=== PATIENT | female | born 1970 | race Asian ===

== ENCOUNTER → 2021-03-04 | Outpatient (CLI) | payer OTHER | LOC: MHCPAIN 11:01 | DX: M47.812 Spondylosis without myelopathy or radiculopathy, cervical region (principal); M54.2 Cervicalgia; M25.511 Pain in right shoulder | CPT/HCPCS: G0463 ==

== ENCOUNTER → 2021-05-08 | Outpatient (CLI) | payer OTHER | LOC: MHCPAIN 10:35 | DX: M47.812 Spondylosis without myelopathy or radiculopathy, cervical region (principal); M54.2 Cervicalgia; M54.12 Radiculopathy, cervical region | CPT/HCPCS: G0463; J1100; Q9967 ==

== ENCOUNTER → 2021-05-27 | Outpatient (CLI) | payer OTHER | LOC: MHCPAIN 10:15 | DX: M47.812 Spondylosis without myelopathy or radiculopathy, cervical region (principal); M54.2 Cervicalgia; M50.30 Other cervical disc degeneration, unspecified cervical region | CPT/HCPCS: G0463 ==

== ENCOUNTER → 2021-06-05 | Outpatient (CLI) | payer OTHER | LOC: MHCPAIN 09:51 | DX: M47.812 Spondylosis without myelopathy or radiculopathy, cervical region (principal); M54.12 Radiculopathy, cervical region | CPT/HCPCS: J1100; Q9967 ==

== ENCOUNTER → 2021-06-18 | Outpatient (CLI) | payer OTHER | LOC: MHCPAIN 09:23 | DX: M47.812 Spondylosis without myelopathy or radiculopathy, cervical region (principal); M54.2 Cervicalgia | CPT/HCPCS: G0463 ==

== ENCOUNTER → 2021-07-14 | Outpatient (CLI) | payer OTHER | LOC: MHCPAIN 11:59 | DX: M47.812 Spondylosis without myelopathy or radiculopathy, cervical region (principal); M54.2 Cervicalgia; M54.12 Radiculopathy, cervical region | CPT/HCPCS: J0461; J1100; Q9967 ==

== ENCOUNTER → 2021-07-28 | Outpatient (CLI) | payer OTHER | LOC: MHCPAIN 10:02 | DX: M47.812 Spondylosis without myelopathy or radiculopathy, cervical region (principal); M54.2 Cervicalgia; G89.29 Other chronic pain | CPT/HCPCS: G0463 ==